=== PATIENT | female | born 1980 | race Caucasian/White ===

== ENCOUNTER 2020-11-16 14:26 | Emergency (ER) | payer SELFPAY ==
[~2020-11-16] VITALS: Ht 154.9 cm; Wt 56.8 kg
[2020-11-16 15:52] LABS: HEMATOCRIT 42.6 % (37.0-47.0); HEMOGLOBIN 13.8 g/dl (12.5-16.0); MEAN CELL VOLUME 94 fl (80.0-100.0); MEAN CORPUSCULAR HEMOGLOBIN 31 pg (27.0-31.0); MEAN CORPUSCULAR HGB CONC 32 g/dl (33.0-37.0); PLATELET COUNT 550 K/mm3 (130-400); RED BLOOD COUNT 4.53 M/mm3 (4.10-5.30); REDCELL DISTRIBUTION WIDTH-CV 12.4 % (11.5-14.5)
[2020-11-16 15:59] LABS: INR 0.9 (0.8-3.0); PROTHROMBIN TIME 10.4 SECONDS (9.7-12.8)
[2020-11-16 16:02] LABS: PARTIAL THROMBOPLASTIN TIME 31.3 SECONDS (26.0-37.0)
[2020-11-16 16:04] LABS: D-DIMER < 200.00 ng/mLDDu (200-230)
[2020-11-16 16:08] LABS: ALANINE AMINOTRANSFERASE 25 U/L (4-34); ALBUMIN 4.8 gm/dL (3.5-5.0); ALKALINE PHOSPHATASE 124 U/L (50-136); ANION GAP 10 mmol/L (7-16); AST,SGOT 33 U/L (15-37); BILIRUBIN,TOTAL 0.4 mg/dL (0.0-1.0); BLOOD UREA NITROGEN 10 mg/dL (7-17); CALCIUM 9.5 mg/dL (8.4-10.2); CARBON DIOXIDE 25 mmol/L (22-30); CHLORIDE 103 mmol/L (98-107); CREATININE, serum 0.73 (0.52-1.25); GLUCOSE 100 mg/dL (74-106); LIPASE 115 U/L (23-300); POTASSIUM 4.1 mmol/L (3.4-5.0); SODIUM 138 mmol/L (137-145); TOTAL PROTEIN 7.8 gm/dL (6.4-8.2)
[2020-11-16 16:17] LABS: BASOPHIL 1 % (0-2); EOSINOPHIL 1 % (0-4); HYPOCHROMIA 1+; LYMPHOCYTE 42 % (20.0-51.0); NEUTROPHILS 48 % (42.0-75.2); PLATELET ESTIMATE INCREASED (NORMAL)
[2020-11-16 16:24] LABS: TROPONIN-I < 0.012 ng/mL (0.000-0.035)
[2020-11-16] MEDS ORDERED: PROAIR HFA0.09 MG/AC IH (18:52)
[2020-11-16 19:10] LABS: TRICYCLIC ANTIDEPRESS URINE NEGATIVE
[2020-11-16 20:15] VITALS: BP 118/74; PULSE 82; TEMP 97.8
== END 2020-11-16 19:20 | disposition home or self-care (01) ==
LOC: COL.ER 14:26
PROVIDERS: Emergency Medicine
DX: R06.00 Dyspnea, unspecified (principal); Z32.02 Encounter for pregnancy test, result negative
CPT/HCPCS: J2060

== ENCOUNTER 2021-05-10 15:49 | Emergency (ER) | payer OTHER ==
[~2021-05-10] VITALS: Ht 154.9 cm; Wt 52.3 kg
[~2021-05-10 15:49] MED LIST: PROAIR HFA0.09 MG/AC IH
[2021-05-10 16:16] VITALS: BP 90/45; PULSE 111; TEMP 98.3
[2021-05-10] MEDS ORDERED: RT ADVAIR 228 DISKUS IH (17:23)
[2021-05-10] MEDS ORDERED: VISTARIL 2525 MG/CAP PO (17:23)
== END 2021-05-10 19:13 | disposition home or self-care (01) ==
LOC: COL.ER 15:49
DX: R06.00 Dyspnea, unspecified (principal); Z87.891 Personal history of nicotine dependence

== ENCOUNTER 2021-05-24 12:42 | Emergency (ER) | payer OTHER ==
[~2021-05-24] VITALS: Ht 154.9 cm; Wt 52.3 kg
[~2021-05-24 12:42] MED LIST changes: +RT ADVAIR 228 DISKUS IH; +VISTARIL 2525 MG/CAP PO
[2021-05-24 13:25] VITALS: BP 153/90; TEMP 98.4
[2021-05-24] MEDS ORDERED: BACTRIM DS 8001 TAB PO (16:01)
[2021-05-24] MEDS ORDERED: ATARAX50 MG PO (16:01)
[2021-05-24 16:21] VITALS: PULSE 99
== END 2021-05-24 16:22 | disposition home or self-care (01) ==
LOC: COL.ER 12:42
DX: L73.9 Follicular disorder, unspecified (principal)

== ENCOUNTER 2021-07-05 15:54 | Emergency (ER) | payer OTHER ==
[~2021-07-05] VITALS: Ht 157.5 cm; Wt 50.9 kg
[~2021-07-05 15:54] MED LIST changes: +ATARAX50 MG PO; +BACTRIM DS 8001 TAB PO
[2021-07-05 16:11] VITALS: TEMP 98.7
[2021-07-05 17:02] LABS: COLLECTION METHOD CLEAN CATCH
[2021-07-05 17:11] LABS: PH 5 (5-8); URINE APPEARANCE Hazy; URINE BACTERIA None Seen /hpf; URINE BILIRUBIN Negative (NEGATIVE); URINE BLOOD Negative (NEGATIVE); URINE COLOR Yellow; URINE GLUCOSE Negative (NEGATIVE); URINE KETONE Negative (NEGATIVE); URINE LEUKOCYTE ESTERASE Trace (NEGATIVE); URINE NITRATE Negative (NEGATIVE); URINE PROTEIN(semi-quant) Negative (NEGATIVE); URINE UROBILINOGEN Negative (NEGATIVE)
[2021-07-05] MEDS ORDERED: TORADOL 10MG TA10 MG PO (17:59)
[2021-07-05 18:41] VITALS: BP 141/88; PULSE 89
== END 2021-07-05 18:40 | disposition home or self-care (01) ==
LOC: COL.ER 15:54
PROVIDERS: Physician Assistant
DX: N80.9 Endometriosis, unspecified (principal)
CPT/HCPCS: J1885

== ENCOUNTER → 2021-07-24 | Outpatient (CLI) | payer OTHER ==
[~2021-07-24] MED LIST changes: +TORADOL 10MG TA10 MG PO
== END ==
LOC: COL.RAD 10:51
DX: N94.10 Unspecified dyspareunia (principal)

== ENCOUNTER → 2021-09-10 | Outpatient (CLI) | payer OTHER | LOC: COL.LAB 09:47 | DX: Z01.89 Encounter for other specified special examinations (principal) ==

== ENCOUNTER → 2021-09-24 | Outpatient (CLI) | payer OTHER | LOC: MC.RAD 10:56 | DX: Z12.31 Encounter for screening mammogram for malignant neoplasm of breast (principal); N64.89 Other specified disorders of breast ==

== ENCOUNTER → 2021-10-04 | Outpatient (CLI) | payer MEDICAID | LOC: MC.RAD 11:00 | DX: N64.89 Other specified disorders of breast (principal) ==

== ENCOUNTER → 2021-11-12 | Outpatient (CLI) | payer MEDICAID ==
[2021-11-12 16:18] LABS: COLLECTION METHOD CLEAN CATCH
[2021-11-12 16:22] LABS: HEMATOCRIT 37.9 % (37.0-47.0); HEMOGLOBIN 12.9 g/dl (12.5-16.0); MEAN CELL VOLUME 91 fl (80.0-100.0); MEAN CORPUSCULAR HEMOGLOBIN 31 pg (27-31); MEAN CORPUSCULAR HGB CONC 34 g/dl (33.0-37.0); MEAN PLATELET VOLUME 9.3 fl (7.4-10.4); PLATELET COUNT 295 K/mm3 (130-400); RED BLOOD COUNT 4.19 M/mm3 (4.10-5.30); REDCELL DISTRIBUTION WIDTH-CV 11.8 % (11.5-14.5)
[2021-11-12 16:25] LABS: MUCOUS Present (NOT PRESENT); PH 6 (5-8); URINE APPEARANCE Clear (CLEAR/HAZY); URINE BACTERIA None Seen /hpf (NONE SEEN); URINE BILIRUBIN Negative (NEGATIVE); URINE BLOOD 3+ (NEGATIVE); URINE COLOR Yellow (YELLOW); URINE GLUCOSE Negative (NEGATIVE); URINE KETONE Negative (NEGATIVE); URINE LEUKOCYTE ESTERASE Negative (NEGATIVE); URINE NITRATE Negative (NEGATIVE); URINE PROTEIN(semi-quant) Negative (NEGATIVE); URINE RBC >50 /hpf (0-2); URINE UROBILINOGEN Negative (NEGATIVE)
[2021-11-12 16:39] LABS: ALBUMIN 4.4 gm/dL (3.5-5.0); BILIRUBIN,TOTAL 0.2 mg/dL (0.2-1.2); CALCIUM 8.8 mg/dL (8.4-10.2); CREATININE, serum 1.1 mg/dL (0.57-1.11); POTASSIUM 4.2 mmol/L (3.5-4.5); TOTAL PROTEIN 6.8 gm/dL (6.2-8.1)
== END ==
LOC: COL.LAB 15:20
PROVIDERS: Family Medicine
DX: Z01.89 Encounter for other specified special examinations (principal)

== ENCOUNTER 2021-12-06 05:27 | Day surgery (SDC) | payer MEDICAID ==
[~2021-12-06] VITALS: Ht 154.9 cm; Wt 54.7 kg
[2021-12-06] VITALS (11 sets, daily range): BP systolic 81–124; BP diastolic 50–84; PULSE 60–89; TEMP 97.2–99.1
[2021-12-06] MEDS ORDERED: NEURONTIN300 MG/CAP PO (06:00)
[2021-12-06] MEDS ORDERED: DEPAKOTE 250MG250 MG PO (06:01)
[2021-12-06 07:02] LABS: TRICYCLIC ANTIDEPRESS URINE NEGATIVE
[2021-12-06] MEDS ORDERED: MOTRIN 800800 MG/TAB PO (07:31)
[2021-12-06] MEDS ORDERED: PERCOCET 325 MG1 TA2 PO (07:31)
--- NOTE | 2021-12-06 17:19 | NUR ---
1700 PATIENT UP WALKING IN HALLS. TOLERATE WELL. IVF HEPLOCKED. BOWEL SOUNDS NOTED, PATIENT IS NOT PASSING GAS. RIGHT LAP INCISION VERY BRUISED AND GOLF BALL SIZE HEMATOMA NOTED. DR GRAMAJO CALLED WITH UPDATE. CONTINUE TO MONITOR AND ABD BINDER ON AT THIS TIME.
--- NOTE | 2021-12-06 17:24 | NUR ---
1720 PATIENT WALKING HALLS WITH FRIEND. TOLERATES WELL
[2021-12-07 02:00] VITALS: BP 101/67; PULSE 79; TEMP 98.1
[2021-12-07 07:30] VITALS: BP 101/68; PULSE 88; TEMP 98.6
[2021-12-07] MEDS ORDERED: COLACE 100100 MG/CAP PO (08:42)
--- NOTE | 2021-12-07 09:45 | NUR ---
Discharge instructions reviewed with pt. Pt verbalized an understanding, agreed with the plan and states no questions or concerns at this time.
== END 2021-12-07 09:45 | disposition home or self-care (01) ==
LOC: SDCO 05:27 → OB 10:30 → SDCO 12:00
PROVIDERS: Nurse Anesthetist, Certified Registered; Obstetrics & Gynecology
DX: N94.6 Dysmenorrhea, unspecified (principal); N80.9 Endometriosis, unspecified; N72 Inflammatory disease of cervix uteri; G89.29 Other chronic pain; G24.9 Dystonia, unspecified; A59.9 Trichomoniasis, unspecified; F20.9 Schizophrenia, unspecified; F17.210 Nicotine dependence, cigarettes, uncomplicated
CPT/HCPCS: OP; J0690; J1100; J1170; J1885; J2405; J2704; J3010; J3475; J7120

== ENCOUNTER 2021-12-14 13:46 | Emergency (ER) | payer MEDICAID ==
[2021-12-14] VITALS (7 sets, daily range): BP systolic 100–121; BP diastolic 63–95; PULSE 75–90; TEMP 98–98.5
[~2021-12-14] VITALS: Ht 154.9 cm; Wt 54.5 kg
[~2021-12-14 13:46] MED LIST changes: +COLACE 100100 MG/CAP PO; +DEPAKOTE 250MG250 MG PO; +MOTRIN 800800 MG/TAB PO; +NEURONTIN300 MG/CAP PO; +PERCOCET 325 MG1 TA2 PO
[2021-12-14 14:18] LABS: COLLECTION METHOD CLEAN CATCH
[2021-12-14 14:39] LABS: PH 5 (5-8); URINE APPEARANCE Clear (CLEAR/HAZY); URINE BACTERIA Rare /hpf (NONE SEEN); URINE BILIRUBIN Negative (NEGATIVE); URINE BLOOD 1+ (NEGATIVE); URINE COLOR Yellow (YELLOW); URINE GLUCOSE Negative (NEGATIVE); URINE KETONE Negative (NEGATIVE); URINE LEUKOCYTE ESTERASE 1+ (NEGATIVE); URINE NITRATE Negative (NEGATIVE); URINE PROTEIN(semi-quant) Negative (NEGATIVE); URINE RBC 0-2 /hpf (0-2); URINE UROBILINOGEN Negative (NEGATIVE)
[2021-12-14 14:42] LABS: ALBUMIN 3.8 gm/dL (3.5-5.0); BILIRUBIN,TOTAL 0.3 mg/dL (0.2-1.2); CALCIUM 8.5 mg/dL (8.4-10.2); CREATININE, serum 0.74 mg/dL (0.57-1.11); TOTAL PROTEIN 6.7 gm/dL (6.2-8.1)
[2021-12-14 14:49] LABS: BASO # 0.1 K/mm3 (0.0-0.2); BASO % 0.4 % (0.0-2.0); EOS # 0.4 K/mm3 (0.0-0.7); EOS % 2.9 % (0.0-4.0); GRAN % 61.1 % (42.2-75.2); LYMPH # 3.3 K/mm3 (1.2-3.4); LYMPH % 25.4 % (20.0-51.0); MEAN CELL VOLUME 97 fl (80.0-100.0); MEAN CORPUSCULAR HGB CONC 32 g/dl (33.0-37.0); MEAN PLATELET VOLUME 10.1 fl (7.4-10.4); MONO # 1.3 K/mm3 (0.1-0.6); MONO % 9.6 % (1.7-9.3); PLATELET COUNT 512 K/mm3 (130-400); RED BLOOD COUNT 2.33 M/mm3 (4.10-5.30); REDCELL DISTRIBUTION WIDTH-CV 14.6 % (11.5-14.5); TRICYCLIC ANTIDEPRESS URINE NEGATIVE
[2021-12-14 14:50] LABS: HEMATOCRIT 22.7 % (37.0-47.0); HEMOGLOBIN 7.2 g/dl (12.5-16.0); MEAN CORPUSCULAR HEMOGLOBIN 31 pg (27-31)
== END 2021-12-14 19:22 | disposition home or self-care (01) ==
LOC: COL.ER 13:46
PROVIDERS: Nurse Practitioner
DX: G89.18 Other acute postprocedural pain (principal); D64.9 Anemia, unspecified; R10.32 Left lower quadrant pain; F17.200 Nicotine dependence, unspecified, uncomplicated
CPT/HCPCS: J2405; J3010; P9016; Q9967

== ENCOUNTER 2022-05-31 12:24 | Emergency (ER) | payer MEDICAID ==
[~2022-05-31] VITALS: Ht 157.5 cm; Wt 55.9 kg
[2022-05-31 12:42] VITALS: BP 129/692; PULSE 96; TEMP 98.4
== END 2022-05-31 16:46 | disposition home or self-care (01) ==
LOC: COL.ER 12:24
DX: B34.9 Viral infection, unspecified (principal); Z87.891 Personal history of nicotine dependence; Z20.822 Contact with and (suspected) exposure to COVID-19